=== PATIENT | female | born 1965 ===

== ENCOUNTER → 2023-04-08 16:21 | Outpatient (REF) | payer OTHER, SELFPAY | LOC: HWWDC 16:21 | PROVIDERS: ATTENDING PHYSICIAN Nurse Practitioner Family; FAMILY PHYSICIAN Family Medicine | DX: Z12.31 Encounter for screening mammogram for malignant neoplasm of breast (principal) | CPT/HCPCS: 77063; 77067 ==

== ENCOUNTER 2024-06-01 16:28 | Emergency (ER) | payer OTHER, SELFPAY ==
[2024-06-01 16:41] VITALS: BP 160/98
[2024-06-01 17:05] LABS: % Basophils 0.4 % (0-2); % Eosinophils 1.2 % (0-6); % Immature Granulocytes 0.2 % (0-0.5); % Lymphocytes 25.7 % (20.5-51.1); % Monocytes 5.3 % (1.7-9.3); % Neutrophils 67.2 % (42.2-75.2); Absolute Eosinophils 0.1 10^3/uL (0-0.7); Absolute Lymphocytes 1.5 10^3/uL (1.2-3.4); Absolute Monocytes 0.3 10^3/uL (0.1-0.6); Absolute Neutrophils 3.8 10^3/uL (1.4-6.5); Hematocrit 38.1 % (37.0-47.0); Hemoglobin 13.3 g/dL (12.0-16.0); Mean Corp Hgb Conc. 34.9 g/dL (33.0-37.0); Mean Corpuscular Hgb 31.7 pg (27.0-31.0); Mean Corpuscular Volume 90.7 fL (81.0-99.0); Mean Platelet Volume 9.5 fL (7.4-10.4); Nucleated Red Blood Cells % 0 %; Platelet Count 191 10^3/uL (130-400); Red Cell Dist. Width 12.6 % (11.5-14.5); White Blood Cell Count 5.7 10^3/uL (4.8-10.8)
[2024-06-01 17:15] LABS: HCG, Serum Qualitative Screen Negative
[2024-06-01 17:19] LABS: ALT (SGPT) 18 U/L (0-35); AST (SGOT) 22 U/L (14-36); Albumin 4.1 g/dl (3.5-5.0); Alkaline Phosphatase 58 U/L (38-126); Blood Urea Nitrogen 16 mg/dl (7-17); Calcium 9.7 mg/dl (8.4-10.2); Carbon Dioxide 28 mmol/L (22-30); Chloride 108 mmol/L (98-107); Glucose 92 mg/dl (70-99); Potassium 3.7 mmol/L (3.5-5.1); Sodium 143 mmol/L (135-145); Total Bilirubin 0.4 mg/dl (0.2-1.3); Total Protein 6.6 g/dl (6.3-8.2); eGFR > 60.00
[2024-06-01 17:32] LABS: Troponin I < 0.012 ng/ml
[2024-06-01 18:32] VITALS: BP 151/84
[2024-06-01 19:00] VITALS: BP 136/78
[2024-06-01 20:00] VITALS: BP 151/85
--- NOTE | 2024-06-01 20:04 | ED.GENMED ---
History of Present Illness
General
Chief Complaint: Chest Pain
Source: patient
Time Seen by Provider: 06/01/24 19:46
History of Present Illness
History of Present Illness:
59-year-old female presents to the emergency room complaining of chest pain. Patient began experiencing the pain 5 days ago. She describes the discomfort as a dull discomfort in her epigastrium and lower chest. It is worse with deep inspiration.
She does not feel short of breath particularly. She is able to ambulate and go up steps etc. without feeling particularly short of breath. Patient denies any previous cardiac history. She does not have hypertension or diabetes. The discomfort
seemed more constant today which prompted her visit to the emergency room. She has taken Tums and Pepcid with which did not help.
Phy Exam
Physical Exam
Physical Exam:
General: Awake, Alert, Oriented X3. No acute distress.
Vitals: unremarkable
Head: Atraumatic
Eyes: Pupils equal, EOMI
Throat: Airway intact, no exudates
Neck: Trachea midline
Lungs: Clear and equal b/l
Heart: Regular rate, no murmurs
Abd: Soft, Nontender, No pulsatile mass
Neuro: Nonfocal
Skin: Warm, dry, no rash
Extremities: pulses equal b/l, no edema
Scores
Heart Score for Chest Pain Patients
STEMI patient?: No
History: Slightly or Non-Suspicious
ECG: Normal
Age: >45 - <65 years
Risk Factors: No Risk Factors
Troponin: </= Normal Limit
Heart Score for Chest Pain Patients: 1
Heart Score Risk: 2.5% MACE over next 6 weeks
Course
Orders/Labs/Results
Orders:
Orders
06/01/24 16:29
EKG [Electrocardiogram (*1)] Urgent
Reason for Study: Abdominal Pain
EKG- Treatment ONCE
06/01/24 16:47
Test Result ONCE
06/01/24 16:48
CXR2 [CR Chest - 2 Views ] Urgent
Comment:
Reason For Exam: pain
06/01/24 16:55
Complete Blood Count/With Diff Urgent
Comprehensive Metabolic Panel Urgent
HCG, Serum Qualitative Screen Urgent
Comment: Notify provider if positive test present
Troponin I Urgent
06/01/24 20:09
D-Dimer Urgent
Troponin I Urgent
Abnormal Lab Results
06/01/24
16:55
MCH 31.7 H pg
(27.0-31.0)
Chloride 108 H mmol/L
(98-107)
06/01/24 16:55
06/01/24 16:55
Vital Signs
Initial and Last Documented VS:
Initial Vital Signs
Temp Pulse Resp BP Pulse Ox
98.1 F 84 16 160/98 97
06/01/24 16:41 06/01/24 16:41 06/01/24 16:41 06/01/24 16:41 06/01/24 16:41
Last Documented Vital Signs
Temp Pulse Resp BP Pulse Ox
98.1 F 74 17 142/86 96
06/01/24 16:41 06/01/24 21:00 06/01/24 21:00 06/01/24 21:00 06/01/24 21:00
MDM/Problems Addressed
Differential Diagnosis Includes:
Acute coronary syndrome, chest wall pain, pneumothorax, GERD, cholelithiasis
MDM/Problems Addressed:
Patient presents with lower chest pain and epigastric pain that has been present almost consistently for the past 5 days. It does wax and wane in intensity. Workup here shows she has no ischemic changes on her EKG. Chest x-ray shows no acute
abnormality. Her troponin is negative x 2 as are the rest of her labs. D-dimer is normal. Overall it is unclear what the source of her discomfort is but I think it is likely either gastritis or perhaps biliary colic. We have certainly ruled out
any unstable process. Patient can felt with her primary care doctor for further evaluation. Recommend a short course of omeprazole OTC
*Radiology
Radiology exam reviewed: radiology read reviewed
*Pulse Oximetry
Patient hypoxic: no
*EKG
Interpreted by ED Provider?: Yes
Heart Rate: 82
Rate: normal
Rhythm: sinus
[place]: normal axis
Interval: normal interval
Ischemia: non-specific ST changes
*[employer] Interpretation
Rate: normal
Interpretation: normal
Rhythm: sinus
*Critical Care Note
Total Time (30-74mins, 75-104mins- exclusive of procedures): Not Applicable
ED Attending Note
-
Portions of this chart may have been created with voice recognition software.� Occasional wrong word or��sound alike� substitutions may have occurred due to the inherent limitations of voice recognition software.
Discharge Plan
Departure
Patient Disposition: Home (Routine Discharge)
Date of Disposition: 06/01/24
Time of Disposition: 21:07
Patient with high blood pressure during this ER visit?: Yes
Condition: Good
Discharge Problem:
Chest pain
Instructions: Chest Pain PCP Follow Up, BLOOD PRESSURE
Activity Restrictions/Additional Instructions:
You came to the emergency room for chest pain. Testing here shows your EKG to be normal. We did test looking for heart injury and they are normal. We also did a test screening for blood clots like a pulmonary embolism and this is normal as well.
I recommend follow-up with your family doctor. He may consider some testing of your gallbladder if your symptoms do not improve. Return if you feel like things are getting worse.
Interventions
Interventions:
*Risk Screen - Suicide Last Done: 06/01/24 16:41
*General Assessment Last Done: 06/01/24 18:30
*Neglect/Abuse Screening Last Done: 06/01/24 16:41
*ED- Fall Risk Assessment Last Done: 06/01/24 16:41
*ED COVID-19 Vaccine History Last Done: 06/01/24 18:29
*Nursing Disposition Last Done: 06/01/24 21:18
ED- Cardiac Assessment Last Done: 06/01/24 18:29
Discharge Date and Time
Discharge Date/Time: 06/01/24 21:22
Print Language: ETHIOPIAN
[2024-06-01 20:31] LABS: D-Dimer < 0.27 ug/mlFEU (0.00-0.50)
[2024-06-01 20:41] LABS: Troponin I < 0.012 ng/ml
[2024-06-01 21:00] VITALS: BP 142/86
== END 2024-06-01 21:22 | disposition home or self-care (01) ==
LOC: EMR 16:28
PROVIDERS: Emergency Medicine; EMERGENCY PHYSICIAN Emergency Medicine; FAMILY PHYSICIAN Family Medicine
DX: R07.89 Other chest pain (principal)
CPT/HCPCS: 99283; 71046; 80053; 84484; 84703; 85025; 85379; 93005